=== PATIENT | male | born 2000 | race American Indian/Alaskan Native ===

== ENCOUNTER 2020-05-22 21:37 | Emergency (ER) | payer OTHER ==
[~2020-05-22] VITALS: Ht 175.3 cm; Wt 87.8 kg
[2020-05-22 21:38] VITALS: BP 137/79
[2020-05-22] MEDS ORDERED: DEBR6.5S4 OTIC (22:46)
== END 2020-05-22 22:51 | disposition home or self-care (01) ==
LOC: M ED 21:37
DX: K08.89 Other specified disorders of teeth and supporting structures (principal); M54.2 Cervicalgia; H61.21 Impacted cerumen, right ear